=== PATIENT | female | born 1965 | race American Indian/Alaskan Native ===

== ENCOUNTER 2016-11-12 15:40 | Emergency (ER) | payer MEDICARE, MEDICAID ==
[2016-11-12 15:56] VITALS: BP 120/80; PULSE 65; RESP 17; TEMP 98.3; O2SAT 95
--- NOTE | 2016-11-12 16:38 | ED PDOC ---
Arrival/HPI - General Chief Complaint: Allergic Reaction Time Seen by Provider: 11/12/16 16:13 Historian: Patient - History of Present Illness Narrative History of Present Illness (Text): 11/12/16 16:13 A 51 year old female, with no significant past medical history, presents to the emergency department complaining of allergic reaction. Patient reports she woke up this morning and ate some flavored oatmeal. Approximately 30 minutes later, patient's upper lip became tight and swollen. Patient denies of any shortness of breath, itchiness of throat, difficulty swallowing, voice changes, or any other complaints. PMD: Dr. Ratliff Time/Duration: 4-6 hours Symptom Onset: Sudden Symptom Course: Unchanged Past Medical History - Provider Review Nursing Documentation Reviewed: Yes - Reproductive Menopause: Yes - Cardiac Hx Hypertension: Yes - Pulmonary Hx Respiratory Disorders: No - Neurological Hx Neurological Disorder: No - HEENT Hx HEENT Disorder: No - Renal Hx Renal Disorder: No - Endocrine/Metabolic Hx Endocrine Disorders: No - Hematological/Oncological Hx Blood Disorders: No - Integumentary Hx Dermatological Disorder: No - Musculoskeletal/Rheumatological Hx Musculoskeletal Disorders: No - Gastrointestinal Hx Gastrointestinal Disorders: No - Genitourinary/Gynecological Hx Genitourinary Disorders: No - Psychiatric Hx Psychophysiologic Disorder: No Hx Substance Use: No - Surgical History Other/Comment: BRAIN Family/Social History - Physician Review Nursing Documentation Reviewed: Yes Family/Social History: No Known Family HX Smoking Status: Never Smoked Hx Alcohol Use: No Hx Substance Use: No Allergies/Home Meds Allergies/Adverse Reactions: Allergies No Known Allergies Allergy (Verified 11/12/16 15:49) Review of Systems - Physician Review All systems were reviewed & negative as marked: Yes - Review of Systems ENT: absent: Voice Changes, Other (no difficulty swallowing, no itchy throat) Respiratory: absent: SOB Physical Exam Vital Signs Reviewed: Yes Vital Signs Temp Pulse Resp BP Pulse Ox 11/12/16 15:49 98.3 F 65 17 120/80 95 11/12/16 15:40 98.3 F 65 18 120/80 95 Temperature: Afebrile Blood Pressure: Normal Pulse: Regular Respiratory Rate: Normal Appearance: Positive for: Well-Appearing Pain Distress: None Mental Status: Positive for: Alert and Oriented X 3 - Systems Exam Head: Present: Atraumatic, Normocephalic Pupils: Present: PERRL Extroacular Muscles: Present: EOMI Conjunctiva: Present: Normal Mouth: Present: Other (swelling of upper lip) Neck: Present: Normal Range of Motion Respiratory/Chest: Present: Clear to Auscultation, Good Air Exchange. No: Respiratory Distress, Accessory Muscle Use Cardiovascular: Present: Regular Rate and Rhythm, Normal S1, S2. No: Murmurs Abdomen: Present: Normal Bowel Sounds. No: Tenderness, Distention, Peritoneal Signs Back: Present: Normal Inspection Upper Extremity: Present: Normal Inspection. No: Cyanosis, Edema Lower Extremity: Present: Normal Inspection. No: Edema Neurological: Present: GCS=15, CN II-XII Intact, Speech Normal Skin: Present: Warm, Dry, Normal Color. No: Rashes Psychiatric: Present: Alert, Oriented x 3, Normal Insight, Normal Concentration Medical Decision Making ED Course and Treatment: 11/12/16 16:17 Impression: 51 year old female with allergic reaction. Physical exam shows swelling of upper lip. Plan: -- Benadryl -- Pepcid -- Prednisone -- Reassess and disposition Progress Notes: Patient's upper lip feels better, less tight, but still swollen. Patient has no other symptoms, she has been discharged home with medications. - Medication Orders Current Medication Orders: Discontinued Medications Diphenhydramine HCl (Benadryl) 50 mg PO STAT STA Stop: 11/12/16 16:14 Last Admin: 11/12/16 16:23 Dose: 50 mg Famotidine (Pepcid) 20 mg PO STAT STA Stop: 11/12/16 16:14 Last Admin: 11/12/16 16:23 Dose: 20 mg Prednisone (Prednisone Tab) 60 mg PO STAT STA Stop: 11/12/16 16:14 Last Admin: 11/12/16 16:23 Dose: 60 mg - Scribe Statement The provider has reviewed the documentation as recorded by the Aysah Rod Provider Scribe Provider Scribe Attestation: All medical record entries made by the Scribe were at my direction and personally dictated by me. I have reviewed the chart and agree that the record accurately reflects my personal performance of the history, physical exam, medical decision making, and the department course for this patient. I have also personally directed, reviewed, and agree with the discharge instructions and disposition. Disposition/Present on Arrival - Present on Arrival Any Indicators Present on Arrival: No History of DVT/PE: No History of Uncontrolled Diabetes: No Urinary Catheter: No History of Decub. Ulcer: No History Surgical Site Infection Following: None - Disposition Have Diagnosis and Disposition been Completed?: Yes Diagnosis: Allergic reaction Disposition: HOME/ ROUTINE Disposition Time: 16:33 Condition: STABLE Discharge Instructions (ExitCare): Allergies (ED) Additional Instructions: Follow up with your PMD within 1-2 days. Return to ED if feel worse. Prescriptions: DiphenhydrAMINE [Benadryl] 25 mg PO .Q4-6 H #30 cap Epinephrine [Epipen] 0.3 mg IJ ONCE #1 auto.injct Famotidine [Pepcid] 20 mg PO BID #20 tab predniSONE [predniSONE Tab] 2 tab PO DAILY #8 tab Referrals: Lorenza Ratliff MD [Primary Care Provider] - Follow up with primary Forms: [facility] [facility] [employer] [facility] ([place])
== END 2016-11-12 16:42 | disposition home or self-care (01) ==
LOC: ED 15:40
DX: T78.40XA Allergy, unspecified, initial encounter (principal); X58.XXXA Exposure to other specified factors, initial encounter

== ENCOUNTER 2018-01-22 12:11 | Emergency (ER) | payer MEDICARE, MEDICAID ==
[2018-01-22 12:36] VITALS: BP 138/76; TEMP 98.6; O2SAT 98
[2018-01-22 14:02] VITALS: PULSE 88; RESP 18
--- NOTE | 2018-01-28 19:02 | ED PDOC ---
Arrival/HPI - General Chief Complaint: Abnormal Skin Integrity Time Seen by Provider: 01/22/18 12:45 Historian: Patient - History of Present Illness Narrative History of Present Illness (Text): 52 year old female with past medical history of hypertension presents to the emergency department complaining rash x 4 days. Patient reports pruritic papular rash to bilateral medial upper arms and bilateral posterior thighs. Patient has been applying moisturizing lotion without relief. No sick contacts, recent travel, or new detergents / lotions. Denies fever, chills, shortness of breath, cough, sinus congestion, rash on palms or soles, mouth lesions, abdominal pain, sore throat, headache, or any other associated symptoms. Past Medical History - Provider Review Nursing Documentation Reviewed: Yes - Infectious Disease Hx of Infectious Diseases: None - Reproductive Menopause: Yes - Cardiac Hx Hypertension: Yes - Pulmonary Hx Respiratory Disorders: No - Neurological Hx Neurological Disorder: No - HEENT Hx HEENT Disorder: No - Renal Hx Renal Disorder: No - Endocrine/Metabolic Hx Endocrine Disorders: No - Hematological/Oncological Hx Blood Disorders: No - Integumentary Hx Dermatological Disorder: No - Musculoskeletal/Rheumatological Hx Musculoskeletal Disorders: No - Gastrointestinal Hx Gastrointestinal Disorders: No - Genitourinary/Gynecological Hx Genitourinary Disorders: No - Psychiatric Hx Psychophysiologic Disorder: No Hx Substance Use: No - Surgical History Other/Comment: BRAIN - Anesthesia Hx Anesthesia: No Hx Anesthesia Reactions: No Hx Malignant Hyperthermia: No Family/Social History - Physician Review Nursing Documentation Reviewed: Yes Family/Social History: No Known Family HX Smoking Status: Never Smoked Hx Alcohol Use: No Hx Substance Use: No Allergies/Home Meds Allergies/Adverse Reactions: Allergies No Known Allergies Allergy (Verified 01/22/18 12:36) Review of Systems - Review of Systems Constitutional: Normal. absent: Fevers Eyes: Normal. absent: Vision Changes ENT: Normal. absent: Sore Throat, Sinus Congestion Respiratory: Normal. absent: SOB, Cough Cardiovascular: Normal. absent: Chest Pain, Palpitations, Syncope Gastrointestinal: Normal. absent: Abdominal Pain, Nausea, Vomiting, Appetite Changes Genitourinary Female: Normal. absent: Dysuria, Frequency, Vaginal Discharge Musculoskeletal: Normal. absent: Back Pain, Neck Pain Skin: Rash Neurological: Normal. absent: Headache, Dizziness Endocrine: Normal Hemo/Lymphatic: Normal. absent: Adenopathy Psychiatric: Normal Physical Exam Vital Signs Reviewed: Yes Vital Signs Temp Pulse Resp BP Pulse Ox 01/22/18 14:00 98.6 F 88 18 98 01/22/18 12:26 98.6 F 86 19 138/76 98 Temperature: Afebrile Blood Pressure: Normal Pulse: Regular Respiratory Rate: Normal Appearance: Positive for: Well-Appearing, Non-Toxic, Comfortable Pain Distress: None Mental Status: Positive for: Alert and Oriented X 3 - Systems Exam Head: Present: Atraumatic, Normocephalic Pupils: Present: PERRL Extroacular Muscles: Present: EOMI Conjunctiva: Present: Normal Ears: Present: Normal, NORMAL TM Mouth: Present: Moist Mucous Membranes Pharnyx: Present: Normal. No: ERYTHEMA, EXUDATE, TONSILS ENLARGED Nose (External): Present: Atraumatic Nose (Internal): Present: Normal Inspection, Moist Neck: Present: Normal Range of Motion Respiratory/Chest: Present: Clear to Auscultation, Good Air Exchange. No: Respiratory Distress, Accessory Muscle Use, Decreased Breath Sounds Cardiovascular: Present: Regular Rate and Rhythm, Normal S1, S2, Peripheal Pulses Present. No: Murmurs Abdomen: Present: Normal Bowel Sounds. No: Tenderness, Distention, Peritoneal Signs Back: Present: Normal Inspection Upper Extremity: Present: Normal ROM, NORMAL PULSES, Neurovascularly Intact, Capillary Refill < 2s, Other (papular rash to bilateral medial upper arm; no erythema or signs of secondary infection). No: Cyanosis, Edema, Tenderness, Swelling, Temperature Abnormalties Lower Extremity: Present: NORMAL PULSES, Normal ROM, Neurovascularly Intact, Capillary Refill < 2 s, Other (papular rash to bilateral posterior thighs; no erythema or signs of secondary infection). No: Edema, Tenderness, Swelling, Temperature Abnormalties Neurological: Present: GCS=15, CN II-XII Intact, Speech Normal, Motor Func Grossly Intact, Normal Sensory Function, Gait Normal Skin: Present: Warm, Dry, Rashes (papular rash to bilateral medial upper arms and posterior thighs; no erythema or signs of secondary infection), Normal Color. No: Erythematous, Hot, Abscess Lymphatic: No: Cervical Adenopathy Psychiatric: Present: Alert, Oriented x 3, Normal Insight, Normal Concentration, Normal Affect, Normal Mood Medical Decision Making ED Course and Treatment: Initial Plan: * Prednisone * Pepcid * Benadryl Patient refusing Benadryl because she has to drive home. Will give pepcid and prednisone. Patient evaluated by Dr. Roche at bedside, who agrees with plan of care and disposition. Patient reports decreased pruritus after medications. Asking to leave emergency department. Plan of care discussed with patient, and strict instructions given regarding prescriptions, importance of follow up, and signs to return to Emergency Department, to include fever, chills, spreading of rash, or any other new /worsening symptoms. Patient verbalizes understanding of discussion. Patient A&Ox3, ambulating with steady gait, stable for discharge home. Impression: Folliculitis - Medication Orders Current Medication Orders: Discontinued Medications Famotidine (Pepcid) 20 mg PO STAT STA Stop: 01/22/18 13:24 Last Admin: 01/22/18 13:45 Dose: 20 mg Prednisone (Prednisone Tab) 60 mg PO STAT ONE Stop: 01/22/18 13:24 Last Admin: 01/22/18 13:43 Dose: 60 mg Disposition/Present on Arrival - Present on Arrival Any Indicators Present on Arrival: No History of DVT/PE: No History of Uncontrolled Diabetes: No Urinary Catheter: No History of Decub. Ulcer: No History Surgical Site Infection Following: None - Disposition Have Diagnosis and Disposition been Completed?: Yes Diagnosis: Folliculitis Disposition: HOME/ ROUTINE Disposition Time: 13:45 Patient Plan: Discharge Condition: GOOD Discharge Instructions (ExitCare): Folliculitis (DC) Additional Instructions: Apply thin layer of cream to affected area twice daily on to clean skin Do not use cream on face Take 1-2 benadryl as needed for itching every 6 hours, this may make you sleepy Followup with primary doctor within 2 days Return to Er for new/worsening symptoms Prescriptions: DiphenhydrAMINE [Benadryl] 25 mg PO Q6H PRN #20 cap PRN Reason: Itching / Pruritus Hydrocortisone 1% Cream [Cortizone 1% Cream] 1 applic TOP BID PRN #1 tube PRN Reason: Itching / Pruritus Referrals: Tashi Ratliff MD [Primary Care Provider] - Follow up with primary Forms: [employer] [facility] ([place]), WORK NOTE
== END 2018-01-22 14:01 | disposition home or self-care (01) ==
LOC: ED 12:11
DX: L73.9 Follicular disorder, unspecified (principal)